=== PATIENT | female | born 1980 | race Caucasian/White ===

== ENCOUNTER 2016-08-31 22:03 | Inpatient (IN) | payer OTHER ==
[~2016-08-31] VITALS: Ht 160 cm; Wt 172.3 kg
[~2016-08-31 22:03] MED LIST: IBUPROFEN 800 MG TAB PO SCH; SPIRONOLACTONE 50 MG TAB PO SCH; tiZANidine 4 MG TAB PO SCH
[2016-09-01] MEDS ORDERED: MOM 30ML SUSPENSION UDC PO PRN (00:30)
[2016-09-01] MEDS ORDERED: MAALOX 30 ML SUSP *UDC PO PRN (00:30)
[2016-09-01] MEDS ORDERED: QUEtiapine FUMARATE 50 MG TAB PO PRN (00:30)
[2016-09-01 00:58] LABS: MEAN CORPUSCULAR HEMOGLOBIN 25.5 pg (27.0-33.0); MEAN CORPUSCULAR HGB CONC 32.7 g/dl (32.0-36.5); MEAN CORPUSCULAR VOLUME 77.8 fl (80.0-96.0); PLATELET COUNT, AUTOMATED 501 k/mm3 (150-450); RED CELL DISTRIBUTION WIDTH 13.3 % (11.5-14.5); WHITE BLOOD COUNT 25.6 K/mm3 (4.0-10.0)
[2016-09-01 01:19] LABS: ALBUMIN 3.9 GM/DL (3.2-5.2); ALBUMIN/GLOBULIN RATIO 0.98 (1.00-1.93); ALKALINE PHOSPHATASE 104 U/L (45-117); ALT/SGPT 21 U/L (12-78); ANION GAP 12 MEQ/L (8-16); AST/SGOT 7 U/L (15-37); BILIRUBIN,DIRECT < 0.1 MG/DL (0.0-0.2); BILIRUBIN,TOTAL 0.3 MG/DL (0.2-1.0); BLOOD UREA NITROGEN 16 MG/DL (7-18); CALCIUM LEVEL 9.1 MG/DL (8.5-10.1); CARBON DIOXIDE LEVEL 27 MEQ/L (21-32); CHLORIDE LEVEL 100 MEQ/L (98-107); CREATININE FOR GFR 1.04 MG/DL (0.55-1.02); GLOMERULAR FILTRATION RATE > 60.0 (>60); GLUCOSE, FASTING 125 MG/DL (70-105); POTASSIUM SERUM 3.5 MEQ/L (3.5-5.1); SODIUM LEVEL 139 MEQ/L (136-145); TOTAL PROTEIN 7.9 GM/DL (6.4-8.2)
[2016-09-01 01:21] LABS: CONTROL LINE HCG INT CTR LINE PRESENT
[2016-09-01 02:10] LABS: AMPHETAMINES LEVEL URINE POSITIVE (NEGATIVE); BENZODIAZEPINES URINE POSITIVE (NEGATIVE); COCAINE METABOLITE URINE NEGATIVE (NEGATIVE); CONTROL LINE INT CTR LINE PRESENT; METHADONE URINE NEGATIVE (NEGATIVE); OPIATES URINE NEGATIVE (NEGATIVE); TRICYCLIC ANTIDEPRESS URINE NEGATIVE (NEGATIVE)
--- NOTE | 2016-09-01 04:16 | EDDOCDS ---
Physician Documentation [facility] Name: Lala Larson Age: 36 yrs Sex: Female : 1980 Arrival Date: 08/31/2016 Time: 22:03 Bed [facility] Private MD: NO PRIMARY PHYSICIAN, . Disposition: 09/01/16 04:06 Hospitalization ordered by Morris Franz for Inpatient Admission. Preliminary diagnosis is Suicidal ideations. - Bed requested for Admit. - Status is Inpatient Admission. rw1 - Condition is Stable. - Problem is an acute exacerbation. - Symptoms have improved. Historical: - Allergies: no known allergies; - Home Meds: 1. duloxetine 60 mg Oral cpDR 2 caps once daily (Last dose: 08/31/2016 10:00) 2. Folic Acid Oral 1 tab once daily 3. Vitamin B-1 oral oral daily 4. naproxen 500 mg Oral tab 1 tab daily 5. trazodone 100 mg Oral tab 1 tab nightly (Last dose: 08/30/2016) 6. ibuprofen 800 mg Oral tab 1 tab nightly (Last dose: 08/30/2016) 7. tizanidine 2 mg oral cap 2 caps nightly (Last dose: 08/30/2016) 8. prednisone Oral 5 day pack, last dose would have been tonight (Last dose: 08/30/2016) 9. spironolactone 100 mg Oral tab 1 tab nightly (Last dose: 08/30/2016) - PMHx: Bipolar disorder; Depression; Anxiety; - PSHx: ; - Social history: Smoking status: Patient states was never smoker of tobacco. No barriers to communication noted, The patient speaks fluent Kazakh. - Family history: Not pertinent. - : The pt / caregiver states he / she is not on anticoagulants. Home medication list is obtained from the patient. - Exposure Risk Screening:: None identified. 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 3 in. (160.02 cm) (R); Pain 10/09; 09/01 04:13 BP 118 / 69; Pulse 97; Resp 18; Temp 97.4(TE); Pulse Ox 98% on R/A; Pain 0/10; rw1 08/31 22:04 Body Mass Index 66.25 (169.64 kg, 160.02 cm) gr2 MDM: 08/31 23:35 Consult PFS/PSA/Storage Facility Housekeeper ordered. ke 23:35 Consult PFS/PSA/Storage Facility Housekeeper: Patient's case requires discussion with on-call ke Psychiatrist ordered. 23:35 PSA/PFS to call Nursing Greens Cutter, to enter patient data on [place] Safe Act if patient ke involuntarily admitted or transferred for SI or HI ordered. 23:35 Confirm accurate psychiatric medication list and times of last dosage ordered. ke 23:35 Detain Pt Until Medically/PFS Cleared ordered. ke 23:36 Acetaminophen Level Ordered. EDMS 23:36 Basic Metabolic Profile Ordered. EDMS 23:36 Complete Blood Count Ordered. EDMS 23:36 Drug Eval Toxicology ED Only Ordered. EDMS 23:36 Ethyl Alcohol (ethanol) Ordered. EDMS 23:36 HCG,Serum Qualitative Ordered. EDMS 23:36 Liver Profile Ordered. EDMS 23:36 Salicylate Level Ordered. EDMS 23:36 Thyroid Stimulating Hormone Ordered. EDMS 09/01 00:25 Admit to HU: ordered. EDMS 00:25 REGULAR DIET ordered. EDMS 01:13 Consult PFS/PSA/Storage Facility Housekeeper complete. jfb 01:13 Consult PFS/PSA/Storage Facility Housekeeper: Patient's case requires discussion with on-call [facility] Psychiatrist complete. 01:13 PSA/PFS to call Nursing Greens Cutter, to enter patient data [place] Safe [place] if patient jfb involuntarily admitted or transferred for SI or HI complete. 01:25 E Legal paperwork was scanned into [employer] and attached to record. jfb 01:33 [facility] [place] Payment Agreement was scanned into [employer] and attached to record. hs2 04:05 Financial registration complete. hs2 04:06 Acetaminophen Level Reviewed. mm11 04:06 Basic Metabolic Profile Reviewed. mm11 04:06 Complete Blood Count Reviewed. mm11 04:06 Drug Eval Toxicology ED Only Reviewed. mm11 04:06 Liver Profile Reviewed. mm11 04:06 Salicylate Level Reviewed. mm11 04:06 Ethyl Alcohol (ethanol) Reviewed. mm11 04:06 HCG,Serum Qualitative Reviewed. mm11 04:06 Thyroid Stimulating Hormone Reviewed. mm11 04:08 Urine Culture Ordered. EDMS 04:09 Differential Ordered. EDMS 04:09 UA Ordered. EDMS Signatures: Dispatcher [employer] EDMS Marbin Herzog, HOMEOPATHIC DOCTOR HOMEOPATHIC DOCTOR Ahsan Velazquez,REGIONAL SALES EXECUTIVE REGIONAL SALES EXECUTIVE rw1 Micheal Ramsey, DO DO mm11 Lyssa Serna, PSA PSA latoshab Marissa Moran RN RN ms18 Jossy Trevino, Reg Reg hs2 The chart was reviewed and I authenticate all verbal orders and agree with the evaluation and treatment provided.Attachments: 01:33 [facility] Payment Agreement hs2 MTDD
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
[2016-09-01 04:23] VITALS: BP 138/89
[2016-09-01] MEDS ORDERED: FOLI1TAB2 PO (04:53)
[2016-09-01] MEDS ORDERED: PRED20TA PO (04:53)
[2016-09-01] MEDS ORDERED: OMEP20CA3 PO (04:53)
[2016-09-01] MEDS ORDERED: NAPR1TAB86 PO (04:53)
[2016-09-01] MEDS ORDERED: SPIR100T PO (04:53)
[2016-09-01] MEDS ORDERED: IBUP800T23 PO (04:53)
[2016-09-01] MEDS ORDERED: TIZA4CAP3 PO (04:53)
[2016-09-01] MEDS ORDERED: VALI5TAB PO (04:53)
[2016-09-01] MEDS ORDERED: VITA100T2 PO (04:53)
[2016-09-01] MEDS ORDERED: TRAZ100T4 PO (04:53)
[2016-09-01] MEDS ORDERED: DULO1CAP3 PO (04:53)
[2016-09-01 05:03] LABS: DIFF SLIDE NUMBER 102
[2016-09-01 05:19] LABS: SMUDGE CELLS 1+
[2016-09-01] MEDS ORDERED: DULoxetine 30 MG CAP (CYMBALTA) PO SCH (09:00)
[2016-09-01] MEDS: FOLIC ACID 1 MG TAB PO SCH (09:23)
[2016-09-01] MEDS: THIAMINE 100 MG TAB PO SCH (09:23)
[2016-09-01] MEDS: OMEPRAZOLE 20 MG CAP PO SCH (09:23)
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
[2016-09-01 12:54] LABS: MEAN CORPUSCULAR HEMOGLOBIN 25.6 pg (27.0-33.0); MEAN CORPUSCULAR HGB CONC 32.8 g/dl (32.0-36.5); MEAN CORPUSCULAR VOLUME 78.1 fl (80.0-96.0); RED CELL DISTRIBUTION WIDTH 13.3 % (11.5-14.5); WHITE BLOOD COUNT 15.7 K/mm3 (4.0-10.0)
--- NOTE | 2016-09-01 15:32 | HPEPDOC ---
[facility] History & Physical History and Physical DATE OF ADMISSION: Sep 01, 2016 at 04:23 CHIEF COMPLAINT: "My head is very messed up right now, I have a 4-year-old, my boyfriend is a drug addict". HISTORY OF THE PRESENT ILLNESS: Patient reports she has had thoughts of hurting herself that started 2-3 months ago. Patient states these have been worse in the last 2-3 weeks due to her boyfriend's increased drug use. PAST PSYCHIATRIC HISTORY: Patient patient states her first psychiatric episode was at age 17 when she had a suicide attempt. Patient reports she cut her bilateral wrists superficially. Patient now feels that was a cry for help, however at the time patient feels she really wanted to . Patient was not hospitalized. Patient was put into outpatient therapy and started on medications. Patient states her first Hospital psych admission was in [place]. Patient states she was here for 4-5 days due to depression and suicidal thoughts. At this hospitalization, the physicians thought she may have a diagnosis of bipolar disease. This admission is the patient's third for psychiatric reasons. ALLERGIES: Please see below. PAST MEDICAL HISTORY: 1. Acne 2. Obesity. HOME MEDICATIONS: Please see below. Cymbalta 120 mg by mouth daily, trazodone 200 mg by mouth daily at bedtime. FAMILY PSYCHIATRIC HISTORY: Patient denies. SOCIAL HISTORY: Patient is a 36-year-old female. Patient reports she has been in a relationship for 5 years with her current boyfriend patient and has a 4-year-old daughter. Patient's current partner is not the father of her child. Of note: Patient has joint custody of her child with her mother. SUBSTANCE ABUSE HISTORY: Patient states her drugs of choice were pain pills and cocaine. Patient states her drug use was for an approximate six-month period of time. Patient states then she came to her senses and realized this was not what she was and stopped. Patient reports she has not had an alcoholic beverage for 6 years by her own choice. Patient denies any problems with alcohol. LEGAL HISTORY: Patient denies. VITAL SIGNS: Temperature 97.1, pulse 98, respiratory rate 16, blood pressure 136 /89, pulse oximetry 98 % on room air. LABORATORY DATA: Please see below. MENTAL STATUS EXAMINATION: Patient is a 36-year-old female who appears her stated age. Patient is pleasant and cooperative, easily engaged. Patient is morbidly obese wearing a hospital gown. Patient noted to have average grooming. Speech: Is circumstantial of, normal rate, volume and articulation. Patient is coherent and spontaneous. Language skills are intact. Thought processes: Unclear , partially goal-directed. Thought content: Rational, logical circumstantial. Abstract reasoning and computation: Adequate. Description of associations: Intact. Description of abnormal or psychotic thoughts: Patient denies hallucinations, delusions, obsessions and compulsions, paranoia, preoccupations , homicidal or suicidal ideation. Patient reports she always thinks of cutting. Patient states she last cut in May 2016. Judgment and insight: Poor. Orientation to time, place, person and surroundings. Recent and remote memory: No issues. Attention span and concentration: Fair. Language: Normal. Fund of knowledge: Adequate. Mood: "Very, very tired and sore due to my back problem ". Affect: Appropriate, flat, constricted, depressed, anxious. DIAGNOSES: 1. Major depressive disorder, recurrent 2. Sleep disturbance 3. Rule out bipolar disorder. ASSESSMENT: Patient is a 36-year-old more build Tone obese female with a 4-year-old daughter. Patient is having relationship issues as she directed describes her boyfriend as an addict. Patient reports she cannot live this way any longer. Patient states she is moved into her mother's and stepfather's residence with her 4-year-old daughter. Patient states that her mother is very supportive. As stated before mother also has joint custody of her 4-year-old daughter. Patient appears overwhelmed, hopeless, undecided as to what she wants next in her life. Patient reports it's time for her to take care of herself and not everyone else. Except her 4-year-old daughter. Patient has been admitted to get that process started. Patient reports she is willing to do what she needs to do to get right. PROBLEM LIST: 1. Risk for suicide. 2. Depression/anxiety. 3. Ineffective coping. INITIAL TREATMENT PLAN: Patient to be continually assessed and monitored while on the unit. Patient to have med dosages adjusted as needed. Maintain safety precautions. To attend groups and activities as well as participating in unit programming to develop effective coping strategies. Patient to be engaged in discharge planning process to ensure safe and effective discharge plan patient to follow-up with primary care physician upon discharge. Patient to consider substance abuse and codependency support group upon discharge. Patient to resume counseling and/or therapy upon discharge. Patient to schedule and attend medication management appointments per her outpatient provider. ESTIMATED LENGTH OF STAY: 7-10 days. TIME SPENT EVALUATING AND COORDINATING INITIAL CARE: 50 minutes. Laboratory Data 24H Labs Laboratory Tests 2 09/01/16 00:23: Urine Amorphous Sediment , Urine Appearance HAZY, Urine Color YELLOW, Urine pH 5.0, Urine Specific [place] 1.021, Urine Protein NEGATIVE, Urine Glucose (UA) NEGATIVE, Urine Ketones NEGATIVE, Urine Urobilinogen 0.2, Urine Bilirubin NEGATIVE, Urine Leukocyte Esterase TRACEH, Urine Bacteria (Auto) NEGATIVE, Urine Blood 3+H, Urine Calcium Carbonate Cryst(Auto) , Urine Calcium Oxalate Cryst (Auto) , Urine Calcium Phosphate Krissy (Auto) , Urine Cellular Casts , Urine Cystine Crystals , Urine Granular Casts (Auto) , Urine Hyaline Casts (Auto ) 0, Urine Leucine Crystals , Urine Mucus (Auto) LARGE, Urine Nitrite NEGATIVE, Urine Oval Fat Bodies (Auto) , Urine RBC (Auto) 2, Urine Renal Epithelial Cells , Urine Sperm (Auto) , Urine Squamous Epithelial Cells 5, Urine Transitional Epithelial Cells , Urine Trichomonas (Auto) , Urine Triple Phosphate Cryst (Auto ) , Urine Tyrosine Crystals , Urine Uric Acid Crystals (Auto) , Urine WBC (Auto ) 6H, Urine Waxy Casts (Auto) , Urine Yeast-Like Cells (Auto) 09/01/16 00:24: Urine Amphetamine Level POSITIVEH, Urine Benzodiazepines Screen POSITIVEH, Urine Cannabinoids NEGATIVE, Urine Cocaine Metabolite NEGATIVE, Urine Opiates Screen NEGATIVE, Urine Barbiturates, Qualitative NEGATIVE, Urine Methadone Screen NEGATIVE, Urine Tricyclic Antidepressants NEGATIVE 09/01/16 00:30: Acetaminophen Level < 2.0L, Aspartate Amino Transf (AST/SGOT) 7L, Alanine Aminotransferase (ALT/SGPT) 21, Alkaline Phosphatase 104, Total Bilirubin 0.3, Direct Bilirubin < 0.1, Albumin 3.9, Albumin/Globulin Ratio 0.98L, Anion Gap 12 , Neutrophils 65, Lymphocytes (Manual) 20, Monocytes (Manual) 9H, Atypical Lymphocytes 6H, Red Blood Cell Morphology NORMAL, Smudge Cells 1+, Platelet Estimate NORMAL, Calcium Level 9.1, Ethyl Alcohol Level < 0.003, Glomerular Filtration Rate > 60.0, Human Chorionic Gonadotropin, Qual NEGATIVE, Salicylates Level < 1.7L, Thyroid Stimulating Hormone (TSH) 2.820, Total Protein 7.9 CBC/BMP Laboratory Tests 09/01/16 00:30 Red Blood Count 5.95 H, Mean Corpuscular Volume 77.8 L, Mean Corpuscular Hemoglobin 25.5 L, Mean Corpuscular Hemoglobin Concent 32.7, Red Cell Distribution Width 13.3 09/01/16 12:08 Red Blood Count 5.72 H, Mean Corpuscular Volume 78.1 L, Mean Corpuscular Hemoglobin 25.6 L, Mean Corpuscular Hemoglobin Concent 32.8, Red Cell Distribution Width 13.3 Medications Scheduled Duloxetine Hcl (Duloxetine HCl) 60 Mg Cap 120 MG PO DAILY (Reported) Folic Acid (Folic Acid) 1 Mg Tab 1 MG PO DAILY (Reported) Ibuprofen (Ibuprofen) 800 Mg Tab 800 MG PO QHS (Reported) Naproxen Sodium (Naproxen Sodium) 500 Mg Tab 500 MG PO DAILY (Reported) Omeprazole (Omeprazole) 20 Mg Cap 20 MG PO DAILY (Reported) Prednisone (Prednisone) 20 Mg Tab 60 MG PO QHS (Reported) 08/31/16 AT QHS WOULD HAVE BEEN LAST DOSE Spironolactone (Spironolactone) 100 Mg Tab 100 MG PO QHS (Reported) Thiamine HCl (Vitamin B-1) 100 Mg Tab 100 MG PO DAILY (Reported) Trazodone HCl (Trazodone HCl) 100 Mg Tab 200 MG PO QHS (Reported) Scheduled PRN Diazepam (Valium) 5 Mg Tab 5 MG PO Q8H PRN PRN MUSCLE SPASMS (Reported) Tizanidine Hydrochloride (Tizanidine HCl) 4 Mg Cap 4 MG PO TID PRN PRN MUSCLE SPASMS (Reported) Allergies Coded Allergies: TAPE (Unverified Allergy, Intermediate, BLISTERS, 09/01/16) Prochlorperazine (Unverified Adverse Reaction, Intermediate, NAUSEA, ) JESSE BLEDSOE NP Sep 01, 2016 15:31
[2016-09-01 18:00] VITALS: BP 121/67
[2016-09-01] MEDS: SPIRONOLACTONE 50 MG TAB PO SCH (20:53)
[2016-09-01] MEDS: traZODone 100 MG TAB PO PRN (20:53)
[2016-09-01] MEDS ORDERED: tiZANidine 4 MG TAB PO SCH (21:00)
[2016-09-01] MEDS ORDERED: IBUPROFEN 800 MG TAB PO SCH (21:00)
[2016-09-02 06:32] VITALS: BP 118/60
[2016-09-02] MEDS: THIAMINE 100 MG TAB PO SCH (09:45)
[2016-09-02] MEDS: OMEPRAZOLE 20 MG CAP PO SCH (09:45)
[2016-09-02] MEDS: FLUoxetine 10 MG CAP PO SCH (09:45)
[2016-09-02] MEDS: FOLIC ACID 1 MG TAB PO SCH (09:45)
[2016-09-02] MEDS: hydrOXYzine 50 MG TAB PO PRN (11:44)
[2016-09-02] MEDS: chlordiazePOXIDE 25 MG CAP PO SCH ×2 (16:00→21:00)
[2016-09-02] MEDS: tiZANidine 4 MG TAB PO PRN ×2 (16:13→21:36)
[2016-09-02] MEDS: NAPROXEN 375 MG TAB PO PRN (16:14)
[2016-09-02 18:00] VITALS: BP 142/93
--- NOTE | 2016-09-02 18:35 | IPNPDOC ---
[facility] Progress Note Progress Note DATE OF SERVICE: 09/02/16 HISTORY: CHIEF COMPLAINT: "My head is very messed up right now, I have a 4-year- old, my boyfriend is a drug addict". HISTORY OF THE PRESENT ILLNESS: Patient reports she has had thoughts of hurting herself that started 2-3 months ago. Patient states these have been worse in the last 2-3 weeks due to her boyfriend's increased drug use. PAST PSYCHIATRIC HISTORY: Patient patient states her first psychiatric episode was at age 17 when she had a suicide attempt. Patient reports she cut her bilateral wrists superficially. Patient now feels that was a cry for help, however at the time patient feels she really wanted to . Patient was not hospitalized. Patient was put into outpatient therapy and started on medications. Patient states her first Hospital psych admission was in [place]. Patient states she was here for 4-5 days due to depression and suicidal thoughts. At this hospitalization, the physicians thought she may have a diagnosis of bipolar disease. This admission is the patient's third for psychiatric reasons. ALLERGIES: Please see below. PAST MEDICAL HISTORY: 1. Acne 2. Obesity. HOME MEDICATIONS: Please see below. Cymbalta 120 mg by mouth daily, trazodone 200 mg by mouth daily at bedtime. FAMILY PSYCHIATRIC HISTORY: Patient denies. SOCIAL HISTORY: Patient is a 36-year-old female. Patient reports she has been in a relationship for 5 years with her current boyfriend patient and has a 4-year-old daughter. Patient's current partner is not the father of her child. Of note: Patient has joint custody of her child with her mother. SUBSTANCE ABUSE HISTORY: Patient states her drugs of choice were pain pills and cocaine. Patient states her drug use was for an approximate six-month period of time. Patient states then she came to her senses and realized this was not what she was and stopped. Patient reports she has not had an alcoholic beverage for 6 years by her own choice. Patient denies any problems with alcohol. LEGAL HISTORY: Patient denies. NEW TEST RESULTS: NA. UDS ON ADMIT: POS for Amphetamine, Benzo VITAL SIGNS: 96.6 77 18 118/60 CURRENT MEDICATIONS: See below. Prozac 10 mg by mouth every morning, Cymbalta 60 mg by mouth daily at bedtime, hydroxyzine hydrochloride 50 mg by mouth every 6 hours when necessary a/a, trazodone 100 mg by mouth daily at bedtime when necessary for insomnia. MENTAL STATUS EXAMINATION: Patient is a 36-year-old female who appears her stated age. Patient is pleasant and cooperative, easily engaged. Patient is morbidly obese wearing her own clothes. Pt. is talking with RN Lauryn instead of being in group. Pt. states she did not go to group last evening either. Patient noted to have average grooming. Speech: Is circumstantial, of normal rate, volume and articulation. Patient is coherent and spontaneous. Language skills are intact. Thought processes: Clearing, partially goal-directed. Thought content: Rational, logical circumstantial. Abstract reasoning and computation: Adequate. Description of associations: Intact. Description of abnormal or psychotic thoughts: Patient denies hallucinations, delusions, obsessions and compulsions, paranoia, preoccupations, homicidal or suicidal ideation. Patient reports she has no thoughts of cutting. Patient states she last cut in May 2016. Judgment and insight: Poor. Orientation to: Time, place, person and surroundings. Recent and remote memory: No issues. Attention span and concentration: Fair. Language: Normal. Fund of knowledge: Adequate. Mood: "Tired, I feel like I didn't sleep " . Affect: Appropriate, flat, constricted, worried, labile, possibly physically ill. Pt. may be possibly going through withdrawal from benzos. DIAGNOSES: 1. Major depressive disorder, recurrent 2. Sleep disturbance 3. Rule out bipolar disorder. ASSESSMENT: Patient is a 36-year-old morbidly obese, female with a 4- year-old daughter. Patient is having relationship issues as she describes her boyfriend as an addict. Patient reports she cannot live this way any longer. Patient states she is moved into her mother's and stepfather's residence with her 4-year-old daughter. Patient states that her mother is very supportive. As stated before mother also has joint custody of her 4-year-old daughter. Patient appears labile, fluctuating on whether or not she wishes to continue with the relationship. Pt. reports he is continually calling her on the unit. Pt. reports "My boyfriend keeps calling, he wants to be together, he doesn't want me to leave". Pt. states "I am his biggest enabler". When asked how he got the phone number pt. states "I don't know", then "He looked it up on google". Pt. encouraged to not answer the phone calls if they are this upsetting to her. 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 RN encouraged [place] type group to help with co-dependent issues. Pt. complains of stomach upset with diarrhea during the night. Pt. states she did not report this to staff or ask for meds to help. Pt. reports she did not sleep more than 2-3 hours because of this illness. Pt. encouraged to let staff know of issues if it happens again. Pt. met with case management staff for services when discharged. MANAGEMENT PLAN: Patient to be continually assessed and monitored while on the unit. Patient to have med dosages adjusted as needed. Maintain safety precautions. Pt. is not to isolate in her room. To attend groups and activities as well as participating in unit programming to develop effective coping strategies. Patient to be engaged in discharge planning process to ensure safe and effective discharge plan patient to follow-up with primary care physician upon discharge. Patient to consider substance abuse and codependency support group upon discharge. Patient to resume counseling and/or therapy upon discharge. Patient to schedule and attend medication management appointments per her outpatient provider. TIME SPENT: 25 minutes. Vital Signs Vital Signs Date Time Temp Pulse Resp B/P Pulse Ox O2 Delivery O2 Flow Rate FiO2 09/02/16 06:32 96.6 77 18 118/60 09/01/16 04:23 98 Room Air Current Medications Current Medications Medications (Trade) Dose Ordered Sig/Elham Route PRN Reason Start Time Stop Time Status Last Admin Dose Admin Acetaminophen (Tylenol Tab) 650 mg Q6HP PRN PO HEADACHE or DISCOMFORT 09/01/16 00:30 10/01/16 00:29 Al Hydrox/Mg Hydrox/Simethicone (Mylanta) 30 ml Q4HP PRN PO HEARTBURN/INDIGESTION 09/01/16 00:30 10/01/16 00:29 Duloxetine HCl (Cymbalta) 60 mg QHS PO 09/02/16 21:00 10/02/16 20:59 Duloxetine HCl (Cymbalta) 120 mg DAILY PO 09/01/16 09:00 09/01/16 15:16 DC 09/01/16 09:23 Fluoxetine HCl (PROzac) 10 mg QAM PO 09/02/16 09:00 10/02/16 08:59 09/02/16 09:45 Folic Acid (Folic Acid) 1 mg DAILY PO 09/01/16 09:00 10/01/16 08:59 09/02/16 09:45 Home Med (Med Rec Complete!) ASDIRECTED XX 09/01/16 05:00 09/01/16 06:13 DC Hydroxyzine HCl (Atarax) 50 mg Q6HP PRN PO ANXIETY/AGITATION 09/01/16 15:15 10/01/16 15:14 09/02/16 11:44 Ibuprofen (Motrin, Advil) 800 mg QHS PO 08/31/16 21:00 09/01/16 06:19 DC Ibuprofen (Motrin, Advil) 800 mg QHS PO 09/01/16 21:00 09/02/16 11:58 DC 09/01/16 20:53 Magnesium Hydroxide (Milk Of Magnesia) 30 ml DAILYPRN PRN PO CONSTIPATION 09/01/16 00:30 10/01/16 00:29 Naproxen (Naprosyn) 375 mg Q12HP PRN PO PAIN 09/02/16 12:00 10/02/16 11:59 09/02/16 16:14 Omeprazole (PriLOSEC) 20 mg DAILY PO 09/01/16 09:00 10/01/16 08:59 09/02/16 09:45 Quetiapine Fumarate (SEROquel) 50 mg QHSP PRN PO INSOMNIA 09/01/16 00:30 09/01/16 15:16 DC Spironolactone (Aldactone) 100 mg QHS PO 08/31/16 21:00 09/01/16 06:19 DC Spironolactone (Aldactone) 100 mg QHS PO 09/01/16 21:00 10/01/16 20:59 09/01/16 20:53 Thiamine HCl (Thiamine HCl) 100 mg DAILY PO 09/01/16 09:00 10/01/16 08:59 09/02/16 09:45 Tizanidine HCl (Zanaflex) 4 mg QHS PO 08/31/16 21:00 09/01/16 06:20 DC Tizanidine HCl (Zanaflex) 4 mg QHS PO 09/01/16 21:00 09/02/16 11:58 DC 09/01/16 20:53 Tizanidine HCl (Zanaflex) 4 mg TID PRN PO MUSCLE SPASMS 09/02/16 12:00 10/02/16 11:59 09/02/16 16:13 Trazodone HCl (Desyrel) 100 mg QHSP PRN PO INSOMNIA 09/01/16 15:30 10/01/16 15:29 09/01/16 20:53 Allergies Coded Allergies: TAPE (Unverified Allergy, Intermediate, BLISTERS, 09/01/16) Prochlorperazine (Unverified Adverse Reaction, Intermediate, NAUSEA, ) JESSE BLEDSOE NP Sep 02, 2016 18:35
[2016-09-02] MEDS ORDERED: DULoxetine 30 MG CAP (CYMBALTA) PO SCH (21:00)
[2016-09-02] MEDS: SPIRONOLACTONE 50 MG TAB PO SCH (21:34)
[2016-09-02] MEDS: traZODone 100 MG TAB PO PRN (21:36)
--- NOTE | 2016-09-02 23:06 | ECGEPIP ---
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
--- NOTE | 2016-09-03 05:17 | EDDOCDS ---
Physician Documentation [facility] Name: Lala Larson Age: 36 yrs Sex: Female : 1980 Arrival Date: 08/31/2016 Time: 22:03 Bed [facility] Private MD: NO PRIMARY PHYSICIAN, . Disposition: 09/01/16 04:06 Hospitalization ordered by Morris Franz for Inpatient Admission. Preliminary diagnosis is Suicidal ideations. - Bed requested for Admit. - Status is Inpatient Admission. rw1 - Condition is Stable. - Problem is an acute exacerbation. - Symptoms have improved. Historical: - Allergies: no known allergies; - Home Meds: 1. duloxetine 60 mg Oral cpDR 2 caps once daily (Last dose: 08/31/2016 10:00) 2. Folic Acid Oral 1 tab once daily 3. Vitamin B-1 oral oral daily 4. naproxen 500 mg Oral tab 1 tab daily 5. trazodone 100 mg Oral tab 1 tab nightly (Last dose: 08/30/2016) 6. ibuprofen 800 mg Oral tab 1 tab nightly (Last dose: 08/30/2016) 7. tizanidine 2 mg oral cap 2 caps nightly (Last dose: 08/30/2016) 8. prednisone Oral 5 day pack, last dose would have been tonight (Last dose: 08/30/2016) 9. spironolactone 100 mg Oral tab 1 tab nightly (Last dose: 08/30/2016) - PMHx: Bipolar disorder; Depression; Anxiety; - PSHx: ; - Social history: Smoking status: Patient states was never smoker of tobacco. No barriers to communication noted, The patient speaks fluent Mongolian. - Family history: Not pertinent. - : The pt / caregiver states he / she is not on anticoagulants. Home medication list is obtained from the patient. - Exposure Risk Screening:: None identified. 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 3 in. (160.02 cm) (R); Pain 10/09; 09/01 04:13 BP 118 / 69; Pulse 97; Resp 18; Temp 97.4(TE); Pulse Ox 98% on R/A; Pain 0/10; rw1 08/31 22:04 Body Mass Index 66.25 (169.64 kg, 160.02 cm) gr2 MDM: 08/31 23:35 Consult PFS/PSA/Cooper Apprentice ordered. ke 23:35 Consult PFS/PSA/Cooper Apprentice: Patient's case requires discussion with on-call ke Psychiatrist ordered. 23:35 PSA/PFS to call Nursing Getter Welder, to enter patient data on [place] if patient ke involuntarily admitted or transferred for SI or HI ordered. 23:35 Confirm accurate psychiatric medication list and times of last dosage ordered. ke 23:35 Detain Pt Until Medically/PFS Cleared ordered. ke 23:36 Acetaminophen Level Ordered. EDMS 23:36 Basic Metabolic Profile Ordered. EDMS 23:36 Complete Blood Count Ordered. EDMS 23:36 Drug Eval Toxicology ED Only Ordered. EDMS 23:36 Ethyl Alcohol (ethanol) Ordered. EDMS 23:36 HCG,Serum Qualitative Ordered. EDMS 23:36 Liver Profile Ordered. EDMS 23:36 Salicylate Level Ordered. EDMS 23:36 Thyroid Stimulating Hormone Ordered. EDMS 09/01 00:25 Admit to HU: ordered. EDMS 00:25 REGULAR DIET ordered. EDMS 01:13 Consult PFS/PSA/Cooper Apprentice complete. jfb 01:13 Consult PFS/PSA/Cooper Apprentice: Patient's case requires discussion with on-call [facility] Psychiatrist complete. 01:13 PSA/PFS to call Nursing Getter Welder, to [place] if patient jfb involuntarily admitted or transferred for SI or HI complete. 01:25 E Legal paperwork was scanned into [employer] and attached to record. jfb 01:33 [facility] [place] into [employer] and attached to record. hs2 04:05 Financial registration complete. hs2 04:06 Acetaminophen Level Reviewed. mm11 04:06 Basic Metabolic Profile Reviewed. mm11 04:06 Complete Blood Count Reviewed. mm11 04:06 Drug Eval Toxicology ED Only Reviewed. mm11 04:06 Liver Profile Reviewed. mm11 04:06 Salicylate Level Reviewed. mm11 04:06 Ethyl Alcohol (ethanol) Reviewed. mm11 04:06 HCG,Serum Qualitative Reviewed. mm11 04:06 Thyroid Stimulating Hormone Reviewed. mm11 04:08 Urine Culture Ordered. EDMS 04:09 Differential Ordered. EDMS 04:09 UA Ordered. EDMS 09:38 T-Sheet-- Draft Copy was scanned into [employer] and attached to record. gb Signatures: Dispatcher [employer] EDMS Shanell Carson, Reg Reg gb Marbin Herzog, YEAST CULTURE OPERATOR YEAST CULTURE OPERATOR Ahsan Velazquez,TEST LEAD APPLICATION TESTING TEST LEAD APPLICATION TESTING rw1 Micheal Ramsey, DO mm11 Lyssa Serna, PSA PSA jfb Marissa Moran,RN RN [id number] Jossy Trevino, Reg Reg hs2 The chart was reviewed and I authenticate all verbal orders and agree with the evaluation and treatment provided.Attachments: 01:33 [facility] [place] hs2 09:38 T-Sheet-- Draft Copy gb Chart Complete MTDD
--- NOTE | 2016-09-03 05:17 | EDDOCDS ---
Physician Documentation [facility] Name: Lala Larson Age: 36 yrs Sex: Female : 1980 Arrival Date: 08/31/2016 Time: 22:03 Bed [facility] Private MD: NO PRIMARY PHYSICIAN, . Disposition: 09/01/16 04:06 Hospitalization ordered by Morris Franz for Inpatient Admission. Preliminary diagnosis is Suicidal ideations. - Bed requested for Admit. - Status is Inpatient Admission. rw1 - Condition is Stable. - Problem is an acute exacerbation. - Symptoms have improved. Historical: - Allergies: no known allergies; - Home Meds: 1. duloxetine 60 mg Oral cpDR 2 caps once daily (Last dose: 08/31/2016 10:00) 2. Folic Acid Oral 1 tab once daily 3. Vitamin B-1 oral oral daily 4. naproxen 500 mg Oral tab 1 tab daily 5. trazodone 100 mg Oral tab 1 tab nightly (Last dose: 08/30/2016) 6. ibuprofen 800 mg Oral tab 1 tab nightly (Last dose: 08/30/2016) 7. tizanidine 2 mg oral cap 2 caps nightly (Last dose: 08/30/2016) 8. prednisone Oral 5 day pack, last dose would have been tonight (Last dose: 08/30/2016) 9. spironolactone 100 mg Oral tab 1 tab nightly (Last dose: 08/30/2016) - PMHx: Bipolar disorder; Depression; Anxiety; - PSHx: ; - Social history: Smoking status: Patient states was never smoker of tobacco. No barriers to communication noted, The patient speaks fluent Sinhala. - Family history: Not pertinent. - : The pt / caregiver states he / she is not on anticoagulants. Home medication list is obtained from the patient. - Exposure Risk Screening:: None identified. 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 3 in. (160.02 cm) (R); Pain 10/09; 09/01 04:13 BP 118 / 69; Pulse 97; Resp 18; Temp 97.4(TE); Pulse Ox 98% on R/A; Pain 0/10; rw1 08/31 22:04 Body Mass Index 66.25 (169.64 kg, 160.02 cm) gr2 MDM: 08/31 23:35 Consult PFS/PSA/Mechanic Recovery ordered. ke 23:35 Consult PFS/PSA/Mechanic Recovery: Patient's case requires discussion with on-call ke Psychiatrist ordered. 23:35 PSA/PFS to call Nursing Hand Patcher, to [place] if patient ke involuntarily admitted or transferred for SI or HI ordered. 23:35 Confirm accurate psychiatric medication list and times of last dosage ordered. ke 23:35 Detain Pt Until Medically/PFS Cleared ordered. ke 23:36 Acetaminophen Level Ordered. EDMS 23:36 Basic Metabolic Profile Ordered. EDMS 23:36 Complete Blood Count Ordered. EDMS 23:36 Drug Eval Toxicology ED Only Ordered. EDMS 23:36 Ethyl Alcohol (ethanol) Ordered. EDMS 23:36 HCG,Serum Qualitative Ordered. EDMS 23:36 Liver Profile Ordered. EDMS 23:36 Salicylate Level Ordered. EDMS 23:36 Thyroid Stimulating Hormone Ordered. EDMS 09/01 00:25 Admit to HU: ordered. EDMS 00:25 REGULAR DIET ordered. EDMS 01:13 Consult PFS/PSA/Mechanic Recovery complete. jfb 01:13 Consult PFS/PSA/Mechanic Recovery: Patient's case requires discussion with on-call [facility] Psychiatrist complete. 01:13 PSA/PFS to call Nursing Hand Patcher, to [place] if patient jfb involuntarily admitted or transferred for SI or HI complete. 01:25 E Legal paperwork was scanned into [employer] and attached to record. jfb 01:33 [facility] [place] was [place] into [employer] and attached to record. hs2 04:05 Financial registration complete. hs2 04:06 Acetaminophen Level Reviewed. mm11 04:06 Basic Metabolic Profile Reviewed. mm11 04:06 Complete Blood Count Reviewed. mm11 04:06 Drug Eval Toxicology ED Only Reviewed. mm11 04:06 Liver Profile Reviewed. mm11 04:06 Salicylate Level Reviewed. mm11 04:06 Ethyl Alcohol (ethanol) Reviewed. mm11 04:06 HCG,Serum Qualitative Reviewed. mm11 04:06 Thyroid Stimulating Hormone Reviewed. mm11 04:08 Urine Culture Ordered. EDMS 04:09 Differential Ordered. EDMS 04:09 UA Ordered. EDMS 09:38 T-Sheet-- Draft Copy was scanned into [employer] and attached to record. gb Signatures: Dispatcher [employer] EDMS Shanell Carson, Reg Reg gb Marbin Herzog, DIRECTOR BLOOD BANK DIRECTOR BLOOD BANK Ahsan Velazquez,CONTINUOUS CONVEYOR SCREEN DRIER CONTINUOUS CONVEYOR SCREEN DRIER rw1 Micheal Ramsey, DO mm11 Lyssa Serna, PSA PSA jfb Marissa Moran,RN RN [id number] Jossy Trevino, Reg Reg hs2 The chart was reviewed and I authenticate all verbal orders and agree with the evaluation and treatment provided.Attachments: 01:33 [facility] [place] hs2 09:38 T-Sheet-- Draft Copy gb Chart Complete MTDD
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
[2016-09-03 06:45] VITALS: BP 102/58
[2016-09-03 06:55] LABS: MEAN CORPUSCULAR HEMOGLOBIN 25.3 pg (27.0-33.0); MEAN CORPUSCULAR HGB CONC 32.1 g/dl (32.0-36.5); MEAN CORPUSCULAR VOLUME 78.7 fl (80.0-96.0); RED CELL DISTRIBUTION WIDTH 13.7 % (11.5-14.5); WHITE BLOOD COUNT 12.7 K/mm3 (4.0-10.0)
[2016-09-03] MEDS: OMEPRAZOLE 20 MG CAP PO SCH (09:49)
[2016-09-03] MEDS: FOLIC ACID 1 MG TAB PO SCH (09:49)
[2016-09-03] MEDS: FLUoxetine 10 MG CAP PO SCH (09:49)
[2016-09-03] MEDS: chlordiazePOXIDE 25 MG CAP PO SCH (09:49)
[2016-09-03] MEDS: THIAMINE 100 MG TAB PO SCH (09:49)
[2016-09-03] MEDS: NAPROXEN 375 MG TAB PO PRN ×2 (09:50→21:23)
[2016-09-03] MEDS: tiZANidine 4 MG TAB PO PRN ×2 (13:21→21:23)
[2016-09-03] MEDS: ACETAMINOPHEN TAB 650MG DOSE (2X325MG) PO PRN (13:21)
--- NOTE | 2016-09-03 17:53 | IPNPDOC ---
[facility] Progress Note Progress Note DATE OF SERVICE: 09/03/16 HISTORY: "My head is very messed up right now, I have a 4-year-old, my boyfriend is a drug addict". Patient reports she has had thoughts of hurting herself that started 2-3 months ago. Patient states these have been worse in the last 2-3 weeks due to her boyfriend's increased drug use. PAST PSYCHIATRIC HISTORY: Patient patient states her first psychiatric episode was at age 17 when she had a suicide attempt. Patient reports she cut her bilateral wrists superficially. Patient now feels that was a cry for help, however at the time patient feels she really wanted to . Patient was not hospitalized. Patient was put into outpatient therapy and started on medications. Patient states her first Hospital psych admission was in [place]. Patient states she was here for 4-5 days due to depression and suicidal thoughts. At this hospitalization, the physicians thought she may have a diagnosis of bipolar disease. This admission is the patient's third for psychiatric reasons. ALLERGIES: Please see below. PAST MEDICAL HISTORY: 1. Acne 2. Obesity. HOME MEDICATIONS: Please see below. Cymbalta 120 mg by mouth daily, trazodone 200 mg by mouth daily at bedtime. FAMILY PSYCHIATRIC HISTORY: Patient denies. SOCIAL HISTORY: Patient is a 36-year-old female. Patient reports she has been in a relationship for 5 years with her current boyfriend and has a 4- year-old daughter. Patient's current partner is not the father of her child. Of note: Patient has joint custody of her child with her mother. SUBSTANCE ABUSE HISTORY: Patient states her drugs of choice were pain pills and cocaine. Patient states her drug use was for an approximate six-month period of time. Patient states then she came to her senses and realized this was not what she was and stopped. Patient reports she has not had an alcoholic beverage for 6 years by her own choice. Patient denies any problems with alcohol or other substances. LEGAL HISTORY: Patient denies. TEST RESULTS: NA. UDS ON ADMIT: POS for Amphetamine, Benzo VITAL SIGNS: 95.9 72 18 102/58 CURRENT MEDICATIONS: See below. Prozac 10 mg by mouth every morning, Cymbalta 60 mg by mouth daily at bedtime, hydroxyzine hydrochloride 50 mg by mouth every 6 hours when necessary for anxiety/agitation, trazodone 100 mg by mouth daily at bedtime when necessary for insomnia. MENTAL STATUS EXAMINATION: Patient is a 36-year-old female who appears her stated age. Patient is pleasant and cooperative, easily engaged. Patient is morbidly obese wearing her own clothes. Pt. is laying in bed sleeping when provider approached. Patient noted to have average grooming. Pt. states she did go to some groups yesterday. Speech: Is less circumstantial, of normal rate, volume and articulation. Patient is coherent and spontaneous. Language skills are intact. Thought processes: Clearing, partially goal-directed. Thought content: Rational, logical , less circumstantial. Abstract reasoning and computation: Adequate. Description of associations: Intact. Description of abnormal or psychotic thoughts: Patient denies hallucinations, delusions, obsessions and compulsions, paranoia, preoccupations, homicidal or suicidal ideation. Patient reports she has no thoughts of cutting. Patient states she last cut in May 2016. Judgment and insight: Improving if she actually did set boundaries with boyfriend. Orientation to: Time, place, person and surroundings. Recent and remote memory: No issues. Attention span and concentration: Fair. Language: Normal. Fund of knowledge: Adequate. Mood: "Not too bad ". Affect: Appropriate, flat, constricted. DIAGNOSES: 1. Major depressive disorder, recurrent 2. Sleep disturbance 3. Rule out bipolar disorder. 4. Amphetamine use disorder ASSESSMENT: Patient is a 36-year-old morbidly obese, female with a 4- year-old daughter. Patient is having relationship issues as she describes her boyfriend as an addict. Patient reports she cannot live this way any longer. Patient states she is moved into her mother's and stepfather's residence with her 4-year-old daughter. Patient states that her mother is very supportive. As stated before mother also has joint custody of her 4-year-old daughter. Patient states she talked with her boyfriend last night and laid out some boundaries. Specifically she was not going to be with or live with him, she is staying at her mom's. Pt. also states she told him she needed some distance so she can work on her issues. Pt. had stated initially "I am his biggest enabler". Pt. reports she did not sleep more than 3-4 hours last night, staff have charted 7 hours of sleep. Discussed with patient that on admission she was POS for benzos and amphetamine. Pt. states she has an Rx for Valium which she neglected to tell this provider, denies using any amphetamine. Pt. states "I have no idea how that could be in my system. Pt. became slightly agitated when asked about the POS result. Pt's behavioral clues made her appear less than truthful in her response about UDS results. MANAGEMENT PLAN: Patient to be continually assessed and monitored while on the unit. Patient to have med dosages adjusted as needed. Maintain safety precautions. Pt. is not to isolate in her room. To attend groups and activities as well as participating in unit programming to develop effective coping strategies. Patient to be engaged in discharge planning process to ensure safe and effective discharge plan, patient to follow-up with primary care physician upon discharge. Patient to consider substance abuse and codependency support group upon discharge. Patient to resume counseling and/or therapy upon discharge. Patient to schedule and attend medication management appointments per her outpatient provider. TIME SPENT: 25 minutes. Vital Signs Vital Signs Date Time Temp Pulse Resp B/P Pulse Ox O2 Delivery O2 Flow Rate FiO2 09/03/16 06:45 95.9 72 18 102/58 09/01/16 04:23 98 Room Air Laboratory Data CBC/BMP Laboratory Tests 09/03/16 06:23 Red Blood Count 5.09, Mean Corpuscular Volume 78.7 L, Mean Corpuscular Hemoglobin 25.3 L, Mean Corpuscular Hemoglobin Concent 32.1, Red Cell Distribution Width 13.7 Current Medications Current Medications Medications (Trade) Dose Ordered Sig/Elham Route PRN Reason Start Time Stop Time Status Last Admin Dose Admin Acetaminophen (Tylenol Tab) 650 mg Q6HP PRN PO HEADACHE or DISCOMFORT 09/01/16 00:30 10/01/16 00:29 09/03/16 13:21 Al Hydrox/Mg Hydrox/Simethicone (Mylanta) 30 ml Q4HP PRN PO HEARTBURN/INDIGESTION 09/01/16 00:30 10/01/16 00:29 Chlordiazepoxide (Librium) 25 mg BIDP PRN PO WITHDRAWAL SYMPTOMS ONLY!! 09/04/16 16:00 09/11/16 15:59 Chlordiazepoxide (Librium) 25 mg TID PO 09/02/16 16:00 09/03/16 16:14 DC 09/03/16 09:49 Duloxetine HCl (Cymbalta) 20 mg QHS PO 09/03/16 21:00 10/03/16 20:59 Duloxetine HCl (Cymbalta) 60 mg QHS PO 09/02/16 21:00 09/03/16 16:15 DC 09/02/16 21:34 Duloxetine HCl (Cymbalta) 120 mg DAILY PO 09/01/16 09:00 09/01/16 15:16 DC 09/01/16 09:23 Fluoxetine HCl (PROzac) 10 mg QAM PO 09/02/16 09:00 10/02/16 08:59 09/03/16 09:49 Folic Acid (Folic Acid) 1 mg DAILY PO 09/01/16 09:00 10/01/16 08:59 09/03/16 09:49 Home Med (Med Rec Complete!) ASDIRECTED XX 09/01/16 05:00 09/01/16 06:13 DC Hydroxyzine HCl (Atarax) 50 mg Q6HP PRN PO ANXIETY/AGITATION 09/01/16 15:15 10/01/16 15:14 09/02/16 11:44 Ibuprofen (Motrin, Advil) 800 mg QHS PO 08/31/16 21:00 09/01/16 06:19 DC Ibuprofen (Motrin, Advil) 800 mg QHS PO 09/01/16 21:00 09/02/16 11:58 DC 09/01/16 20:53 Magnesium Hydroxide (Milk Of Magnesia) 30 ml DAILYPRN PRN PO CONSTIPATION 09/01/16 00:30 10/01/16 00:29 Naproxen (Naprosyn) 375 mg Q12HP PRN PO PAIN 09/02/16 12:00 10/02/16 11:59 09/03/16 09:50 Omeprazole (PriLOSEC) 20 mg DAILY PO 09/01/16 09:00 10/01/16 08:59 09/03/16 09:49 Quetiapine Fumarate (SEROquel) 50 mg QHSP PRN PO INSOMNIA 09/01/16 00:30 09/01/16 15:16 DC Spironolactone (Aldactone) 100 mg QHS PO 08/31/16 21:00 09/01/16 06:19 DC Spironolactone (Aldactone) 100 mg QHS PO 09/01/16 21:00 10/01/16 20:59 09/02/16 21:34 Thiamine HCl (Thiamine HCl) 100 mg DAILY PO 09/01/16 09:00 10/01/16 08:59 09/03/16 09:49 Tizanidine HCl (Zanaflex) 4 mg QHS PO 08/31/16 21:00 09/01/16 06:20 DC Tizanidine HCl (Zanaflex) 4 mg QHS PO 09/01/16 21:00 09/02/16 11:58 DC 09/01/16 20:53 Tizanidine HCl (Zanaflex) 4 mg TID PRN PO MUSCLE SPASMS 09/02/16 12:00 10/02/16 11:59 09/03/16 13:21 Trazodone HCl (Desyrel) 100 mg QHSP PRN PO INSOMNIA 09/01/16 15:30 10/01/16 15:29 09/02/16 21:36 Allergies Coded Allergies: TAPE (Unverified Allergy, Intermediate, BLISTERS, 09/01/16) Prochlorperazine (Unverified Adverse Reaction, Intermediate, NAUSEA, ) JESSE BLEDSOE NP Sep 03, 2016 17:53
[2016-09-03 18:00] VITALS: BP 149/74
[2016-09-03] MEDS ORDERED: DULoxetine 20 MG CAP (CYMBALTA) PO SCH (21:00)
[2016-09-03] MEDS: traZODone 100 MG TAB PO PRN (21:23)
[2016-09-03] MEDS: SPIRONOLACTONE 50 MG TAB PO SCH (21:23)
[2016-09-04 06:43] VITALS: BP 106/54
[2016-09-04] MEDS: FLUoxetine 10 MG CAP PO SCH (09:28)
[2016-09-04] MEDS: THIAMINE 100 MG TAB PO SCH (09:28)
[2016-09-04] MEDS: FOLIC ACID 1 MG TAB PO SCH (09:29)
[2016-09-04] MEDS: NAPROXEN 375 MG TAB PO PRN ×2 (09:29→21:49)
[2016-09-04] MEDS: hydrOXYzine 50 MG TAB PO PRN ×2 (09:29→21:25)
[2016-09-04] MEDS: OMEPRAZOLE 20 MG CAP PO SCH (09:29)
[2016-09-04] MEDS ORDERED: chlordiazePOXIDE 25 MG CAP PO PRN ×2 (13:00→16:00)
[2016-09-04] MEDS: ACETAMINOPHEN TAB 650MG DOSE (2X325MG) PO PRN (17:22)
[2016-09-04] MEDS: tiZANidine 4 MG TAB PO PRN ×2 (17:22→21:25)
--- NOTE | 2016-09-04 17:28 | IPNPDOC ---
[facility] Progress Note Progress Note DATE OF SERVICE: 09/04/16 HISTORY: "My head is very messed up right now, I have a 4-year-old, my boyfriend is a drug addict". Patient reports she has had thoughts of hurting herself that started 2-3 months ago. Patient states these have been worse in the last 2-3 weeks due to her boyfriend's increased drug use. PAST PSYCHIATRIC HISTORY: Patient patient states her first psychiatric episode was at age 17 when she had a suicide attempt. Patient reports she cut her bilateral wrists superficially. Patient now feels that was a cry for help, however at the time patient feels she really wanted to . Patient was not hospitalized. Patient was put into outpatient therapy and started on medications. Patient states her first Hospital psych admission was in [place]. Patient states she was here for 4-5 days due to depression and suicidal thoughts. At this hospitalization, the physicians thought she may have a diagnosis of bipolar disease. This admission is the patient's third for psychiatric reasons. ALLERGIES: Please see below. Prochlorperazine PAST MEDICAL HISTORY: 1. Acne 2. Obesity. HOME MEDICATIONS: Please see below. Cymbalta 120 mg by mouth daily, trazodone 200 mg by mouth daily at bedtime. FAMILY PSYCHIATRIC HISTORY: Patient denies. SOCIAL HISTORY: Patient is a 36-year-old female. Patient reports she has been in a relationship for 5 years with her current boyfriend and has a 4- year-old daughter. Patient's current partner is not the father of her child. Of note: Patient has joint custody of her child with her mother. SUBSTANCE ABUSE HISTORY: Patient states her drugs of choice were pain pills and cocaine. Patient states her drug use was for an approximate six-month period of time. Patient states then she came to her senses and realized this was not what she was and stopped. Patient reports she has not had an alcoholic beverage for 6 years by her own choice. Patient denies any problems with alcohol or other substances. Pt. UDS on admission POS for Benzos, Amphetamine LEGAL HISTORY: Patient denies. TEST RESULTS: NA. UDS ON ADMIT: POS for Amphetamine, Benzo VITAL SIGNS: 96.1 71 18 106/54 CURRENT MEDICATIONS: See below. Prozac 10 mg by mouth every morning, Cymbalta 20 mg by mouth daily at bedtime, hydroxyzine hydrochloride 50 mg by mouth every 6 hours when necessary for anxiety/agitation, trazodone 100 mg by mouth daily at bedtime when necessary for insomnia. Librium 25 mg po qd prn for withdrawal symptoms only. MENTAL STATUS EXAMINATION: Patient is a 36-year-old female who appears her stated age. Patient is pleasant and cooperative, easily engaged. Patient is morbidly obese wearing her own clothes. Pt. is in hallway taking breakfast tray back to cart when provider approached. Patient noted to have average grooming. Pt. states she did go to some groups yesterday. Speech: Is of normal rate, volume and articulation. Patient is coherent and spontaneous. Language skills are intact. Thought processes: Clearing, partially goal-directed. Thought content: Rational, logical. Abstract reasoning and computation: Adequate. Description of associations: Intact. Description of abnormal or psychotic thoughts: Patient denies hallucinations, delusions, obsessions and compulsions, paranoia, preoccupations, homicidal or suicidal ideation. Patient reports she has no thoughts of cutting. Patient states she last cut in May 2016. Judgment and insight: Improving if she actually did set boundaries with boyfriend. Fair overall. Orientation to: Time, place, person and surroundings. Recent and remote memory: "Good". Attention span and concentration: Fair. Language: Normal. Fund of knowledge: Adequate. Mood: "I feel all right". Affect: Appropriate, flat, constricted. DIAGNOSES: 1. Major depressive disorder, recurrent 2. Sleep disturbance 3. Rule out bipolar disorder. 4. Amphetamine use disorder ASSESSMENT: Patient is a 36-year-old morbidly obese, female with a 4- year-old daughter. Patient is having relationship issues as she describes her boyfriend as an addict. Patient reports she cannot live this way any longer. Patient states she is moved into her mother's and stepfather's residence with her 4-year-old daughter. Patient states that her mother is very supportive. As stated before mother also has joint custody of her 4-year-old daughter. Pt. had stated initially "I am his biggest enabler"(her boyfriend). Pt. reports she did not sleep more than 2 hours last night, staff have charted 7 hours of sleep for last night. Pt. continues to state to provider that she does not know how she tested POS for amphetamine. Pt. states "I have no idea how that could have gotten in my system. Pt's behavioral clues made her appear less than truthful in her response about UDS results. MANAGEMENT PLAN: Patient to be continually assessed and monitored while on the unit. Patient to have med dosages adjusted as needed. Maintain safety precautions. Pt. is not to isolate in her room. To attend groups and activities as well as participating in unit programming to develop effective coping strategies. Patient to be engaged in discharge planning process to ensure safe and effective discharge plan, patient to follow-up with primary care physician upon discharge. Patient to consider substance abuse and codependency support group upon discharge. Patient to resume counseling and/or therapy upon discharge. Patient to schedule and attend medication management appointments per her outpatient provider. TIME SPENT: 25 minutes. Vital Signs Vital Signs Date Time Temp Pulse Resp B/P Pulse Ox O2 Delivery O2 Flow Rate FiO2 09/04/16 06:43 96.1 71 18 106/54 09/01/16 04:23 98 Room Air Current Medications Current Medications Medications (Trade) Dose Ordered Sig/Elham Route PRN Reason Start Time Stop Time Status Last Admin Dose Admin Acetaminophen (Tylenol Tab) 650 mg Q6HP PRN PO HEADACHE or DISCOMFORT 09/01/16 00:30 10/01/16 00:29 09/03/16 13:21 Al Hydrox/Mg Hydrox/Simethicone (Mylanta) 30 ml Q4HP PRN PO HEARTBURN/INDIGESTION 09/01/16 00:30 10/01/16 00:29 Chlordiazepoxide (Librium) 25 mg BIDP PRN PO WITHDRAWAL SYMPTOMS ONLY!! 09/04/16 16:00 09/04/16 16:00 DC Chlordiazepoxide (Librium) 25 mg DAILYPRN PRN PO WITHDRAWAL SYMPTOMS ONLY!! 09/04/16 13:00 09/05/16 12:59 Chlordiazepoxide (Librium) 25 mg TID PO 09/02/16 16:00 09/03/16 16:14 DC 09/03/16 09:49 Duloxetine HCl (Cymbalta) 20 mg QHS PO 09/03/16 21:00 09/04/16 12:40 DC 09/03/16 21:23 Duloxetine HCl (Cymbalta) 60 mg QHS PO 09/02/16 21:00 09/03/16 16:15 DC 09/02/16 21:34 Duloxetine HCl (Cymbalta) 120 mg DAILY PO 09/01/16 09:00 09/01/16 15:16 DC 09/01/16 09:23 Fluoxetine HCl (PROzac) 10 mg QAM PO 09/02/16 09:00 10/02/16 08:59 09/04/16 09:28 Folic Acid (Folic Acid) 1 mg DAILY PO 09/01/16 09:00 10/01/16 08:59 09/04/16 09:29 Home Med (Med Rec Complete!) ASDIRECTED XX 09/01/16 05:00 09/01/16 06:13 DC Hydroxyzine HCl (Atarax) 50 mg Q6HP PRN PO ANXIETY/AGITATION 09/01/16 15:15 10/01/16 15:14 09/04/16 09:29 Ibuprofen (Motrin, Advil) 800 mg QHS PO 08/31/16 21:00 09/01/16 06:19 DC Ibuprofen (Motrin, Advil) 800 mg QHS PO 09/01/16 21:00 09/02/16 11:58 DC 09/01/16 20:53 Magnesium Hydroxide (Milk Of Magnesia) 30 ml DAILYPRN PRN PO CONSTIPATION 09/01/16 00:30 10/01/16 00:29 Naproxen (Naprosyn) 375 mg Q12HP PRN PO PAIN 09/02/16 12:00 10/02/16 11:59 09/04/16 09:29 Omeprazole (PriLOSEC) 20 mg DAILY PO 09/01/16 09:00 10/01/16 08:59 09/04/16 09:29 Quetiapine Fumarate (SEROquel) 50 mg QHSP PRN PO INSOMNIA 09/01/16 00:30 09/01/16 15:16 DC Spironolactone (Aldactone) 100 mg QHS PO 08/31/16 21:00 09/01/16 06:19 DC Spironolactone (Aldactone) 100 mg QHS PO 09/01/16 21:00 10/01/16 20:59 09/03/16 21:23 Thiamine HCl (Thiamine HCl) 100 mg DAILY PO 09/01/16 09:00 10/01/16 08:59 09/04/16 09:28 Tizanidine HCl (Zanaflex) 4 mg QHS PO 08/31/16 21:00 09/01/16 06:20 DC Tizanidine HCl (Zanaflex) 4 mg QHS PO 09/01/16 21:00 09/02/16 11:58 DC 09/01/16 20:53 Tizanidine HCl (Zanaflex) 4 mg TID PRN PO MUSCLE SPASMS 09/02/16 12:00 10/02/16 11:59 09/03/16 21:23 Trazodone HCl (Desyrel) 100 mg QHSP PRN PO INSOMNIA 09/01/16 15:30 10/01/16 15:29 09/03/16 21:23 Allergies Coded Allergies: TAPE (Unverified Allergy, Intermediate, BLISTERS, 09/01/16) Prochlorperazine (Unverified Adverse Reaction, Intermediate, NAUSEA, ) JESSE BLEDSOE NP Sep 04, 2016 17:28
[2016-09-04 18:00] VITALS: BP 143/86
[2016-09-04] MEDS: SPIRONOLACTONE 50 MG TAB PO SCH (21:25)
[2016-09-04] MEDS: traZODone 100 MG TAB PO PRN (21:25)
[2016-09-05 06:41] VITALS: BP 105/56
[2016-09-05] MEDS: OMEPRAZOLE 20 MG CAP PO SCH (09:22)
[2016-09-05] MEDS: FLUoxetine 10 MG CAP PO SCH (09:22)
[2016-09-05] MEDS: THIAMINE 100 MG TAB PO SCH (09:22)
[2016-09-05] MEDS: FOLIC ACID 1 MG TAB PO SCH (09:22)
[2016-09-05] MEDS: NAPROXEN 375 MG TAB PO PRN (16:28)
[2016-09-05 18:00] VITALS: BP 121/68
[2016-09-05] MEDS: tiZANidine 4 MG TAB PO PRN (22:04)
[2016-09-05] MEDS: traZODone 50 MG TAB PO SCH (22:04)
[2016-09-05] MEDS: SPIRONOLACTONE 50 MG TAB PO SCH (22:04)
[2016-09-05] MEDS: ACETAMINOPHEN TAB 650MG DOSE (2X325MG) PO PRN (22:05)
--- NOTE | 2016-09-06 03:53 | IPN ---
DATE: 09/05/2016 CHIEF COMPLAINT: "I cannot sleep too well." SUBJECTIVE: Patient is tolerating well the medication and denies any side effects. Patient is currently taking Prozac 10 mg daily and trazodone 100 mg. Complains of insomnia. MENTAL STATUS EXAMINATION: Patient is dressed in [facility]. Patient is cooperative during exam. Speech is low and monotone. Mood is depressed and anxious. Affect is restricted. No evidence of delusions or hallucinations, and mood is fair. Patient is fully oriented. Memory is intact. Thinking is logical. Thought content is appropriate. Patient is able to contract for safety, and denies suicidal or homicidal ideation during the interview. Insight and judgment is limited. ASSESSMENT: 1. Depression. 2. Amphetamine abuse. 3. Insomnia. PLAN: 1. Increase Prozac to 20 mg by mouth every morning. 2. Increase trazodone to 150 mg by mouth at bedtime. 3. Continue medication management, individual and group therapy.
[2016-09-06 06:25] VITALS: BP 112/65
[2016-09-06] MEDS: OMEPRAZOLE 20 MG CAP PO SCH (08:41)
[2016-09-06] MEDS: FOLIC ACID 1 MG TAB PO SCH (08:41)
[2016-09-06] MEDS: THIAMINE 100 MG TAB PO SCH (08:41)
[2016-09-06] MEDS: NAPROXEN 375 MG TAB PO PRN ×2 (08:43→23:04)
[2016-09-06] MEDS ORDERED: FLUoxetine 20 MG CAP PO SCH (09:00)
[2016-09-06] MEDS: ACETAMINOPHEN TAB 650MG DOSE (2X325MG) PO PRN (12:36)
[2016-09-06 18:00] VITALS: BP 144/89
[2016-09-06] MEDS: traZODone 50 MG TAB PO SCH (23:02)
[2016-09-06] MEDS: tiZANidine 4 MG TAB PO PRN (23:03)
[2016-09-06] MEDS: SPIRONOLACTONE 50 MG TAB PO SCH (23:04)
[2016-09-07 06:33] VITALS: BP 113/56
[2016-09-07] MEDS ORDERED: HYDRO50TAB PO (08:08)
[2016-09-07] MEDS ORDERED: FLUO10CA9 PO (08:10)
[2016-09-07] MEDS ORDERED: TRAZ10TA PO (08:10)
[2016-09-07] MEDS ORDERED: traZODone 100 MG TAB PO PRN (08:15)
[2016-09-07] MEDS: THIAMINE 100 MG TAB PO SCH (08:42)
[2016-09-07] MEDS: OMEPRAZOLE 20 MG CAP PO SCH (08:42)
[2016-09-07] MEDS: FOLIC ACID 1 MG TAB PO SCH (08:42)
[2016-09-07] MEDS: hydrOXYzine 50 MG TAB PO PRN (08:42)
[2016-09-07] MEDS: NAPROXEN 375 MG TAB PO PRN (08:43)
[2016-09-07] MEDS ORDERED: FLUoxetine 10 MG CAP PO SCH (09:00)
--- NOTE | 2016-09-07 12:26 | DS.PDOC ---
[facility] Discharge Summary Discharge Summary DATE OF ADMISSION: Sep 01, 2016 at 04:23 DATE OF DISCHARGE: Sep 07, 2016 at 11:45 DISCHARGE DIAGNOSES: 1. Major depressive disorder, recurrent 2. Insomnia 3. Amphetamine use disorder REASON FOR ADMISSION: "My head is very messed up right now, I have a 4-year-old , my boyfriend is a drug addict". Patient reports she has had thoughts of hurting herself that started 2-3 months ago. Patient states these have been worse in the last 2-3 weeks due to her boyfriend's increased drug use. TEST RESULTS: UDS ON ADMIT: POS for Amphetamine, Benzo PAST PSYCHIATRIC HISTORY: Patient patient states her first psychiatric episode was at age 17 when she had a suicide attempt. Patient reports she cut her bilateral wrists superficially. Patient now feels that was a cry for help, however at the time patient feels she really wanted to . Patient was not hospitalized. Patient was put into outpatient therapy and started on medications. Patient states her first Hospital psych admission was in [place]. Patient states she was here for 4-5 days due to depression and suicidal thoughts. At this hospitalization, the physicians thought she may have a diagnosis of bipolar disease. This admission is the patient's third for psychiatric reasons. FAMILY PSYCHIATRIC HISTORY: Patient denies. SOCIAL HISTORY: Patient is a 36-year-old female. Patient reports she has been in a relationship for 5 years with her current boyfriend and has a 4- year-old daughter. Patient's current partner is not the father of her child. Of note: Patient has joint custody of her child with her mother. SUBSTANCE ABUSE HISTORY: Patient states her drugs of choice were pain pills and cocaine. Patient states her drug use was for an approximate six-month period of time. Patient states then she came to her senses and realized this was not what she was and stopped. Patient reports she has not had an alcoholic beverage for 6 years by her own choice. Patient denies any problems with alcohol or other substances. Pt. UDS on admission POS for Benzos, Amphetamine LEGAL HISTORY: Patient denies. TREATMENT AND PROGRESS ON THE UNIT: Patient is a 36-year-old morbidly obese, female with a 4-year-old daughter. Patient is having relationship issues as she describes her boyfriend as an addict. Patient reports she cannot live this way any longer. Patient states she is moved into her mother's and stepfather's residence with her 4-year-old daughter. Patient states that her mother is very supportive. As stated before mother also has joint custody of her 4-year-old daughter. Pt. had stated initially "I am his biggest enabler"( her boyfriend). Pt. reports "Not good at all", when asked how she slept. Pt. reports only sleeping 4-5 hours as "I was up and down all night". Staff have charted 5 hours of sleep for last night. Pt. continues to state to provider that she does not know how she tested POS for amphetamine. Pt. states "I have no idea how that could have gotten in my system. Pt's behavioral clues made her appear less than truthful in her response about UDS results. MENTAL STATUS EXAMINATION AT DISCHARGE: Patient is a 36-year-old female who appears her stated age. Patient is pleasant and cooperative, easily engaged. Patient is morbidly obese wearing her own clothes. Pt. is in lounge eating breakfast when provider approached. Patient noted to have average grooming. Pt. states she did go to some groups over the weekend. Speech: Is of normal rate, volume and articulation. Patient is coherent and spontaneous. Language skills are intact. Thought processes: Clearing, Some what goal-directed. Thought content: Rational, logical. Abstract reasoning and computation: Adequate. Description of associations: Intact. Description of abnormal or psychotic thoughts: Patient denies hallucinations, delusions, obsessions and compulsions, paranoia, preoccupations, homicidal or suicidal ideation. Pt. is stable for discharge. Patient reports she has no thoughts of cutting. Patient states she last cut in May 2016. Judgment and insight: Improving, if she actually did set boundaries with boyfriend. Fair overall. Orientation to: Time, place, person and surroundings. Recent and remote memory: "Good". Attention span and concentration: Fair. Language: Normal. Fund of knowledge: Adequate. Mood: "Just a little anxious". Pt. states she just has reservations about her ex, "I hope I don't cave (in)". Affect: Appropriate, flat , constricted. MEDICATIONS ON DISCHARGE: Prozac 10 mg by mouth every morning hydroxyzine hydrochloride 50 mg by mouth every 6 hours when necessary for anxiety/agitation trazodone 100 mg by mouth daily at bedtime when necessary for insomnia. DISCHARGE PLAN: Patient to follow-up with primary care physician upon discharge. Patient to schedule and attend substance abuse and codependency support group upon discharge. Patient to resume counseling and/or therapy upon discharge. Patient to schedule and attend medication management appointments per her outpatient provider. The amount of time spent in the coordination of care for this patient was approximately 25 minutes. Vital Signs Vital Sign - Last 24 Hours 09/06/16 09/07/16 18:00 06:33 Temp 97.9 97.4 Pulse 99 80 Resp 16 20 B/P 144/89 113/56 Laboratory Data Microbiology Microbiology 09/01/16 Urine Culture - Final, Complete Medications Scheduled Fluoxetine HCl (Fluoxetine HCl) 10 Mg Cap #7 10 MG PO QAM Anxiety/Depression Folic Acid (Folic Acid) 1 Mg Tab 1 MG PO DAILY supplement (Reported) Omeprazole (Omeprazole) 20 Mg Cap 20 MG PO DAILY GERD (Reported) Spironolactone (Spironolactone) 100 Mg Tab 100 MG PO QHS diuretic (Reported) Thiamine HCl (Vitamin B-1) 100 Mg Tab 100 MG PO DAILY supplement (Reported) Scheduled PRN Hydroxyzine HCl (Hydroxyzine HCl) 50 Mg Tab #20 50 MG PO Q6HP PRN PRN ANXIETY/ AGITATION Naproxen Sodium (Naproxen Sodium) 500 Mg Tab 500 MG PO DAILYPRN PRN PRN PAIN ( Reported) Tizanidine Hydrochloride (Tizanidine HCl) 4 Mg Cap 4 MG PO TID PRN PRN MUSCLE SPASMS (Reported) Trazodone HCl (Trazodone HCl) 100 Mg Tab #10 100 MG PO QHSP PRN PRN INSOMNIA Allergies Coded Allergies: TAPE (Unverified Allergy, Intermediate, BLISTERS, 09/01/16) Prochlorperazine (Unverified Adverse Reaction, Intermediate, NAUSEA, ) JESSE BLEDSOE NP Sep 07, 2016 12:26
== END 2016-09-07 11:45 | disposition home or self-care (01) | DRG 751 ==
LOC: M ED 22:03 → M PSY 09-01 04:23
PROVIDERS: ADMIT Psychiatry & Neurology Psychiatry; ATTEND Psychiatry & Neurology Psychiatry
DX: F33.9 Major depressive disorder, recurrent, unspecified (principal); Z68.44 Body mass index [BMI] 60.0-69.9, adult; E66.01 Morbid (severe) obesity due to excess calories; F15.90 Other stimulant use, unspecified, uncomplicated; M54.5 Low back pain; G47.00 Insomnia, unspecified; D72.829 Elevated white blood cell count, unspecified; E28.2 Polycystic ovarian syndrome; L70.9 Acne, unspecified; K21.9 Gastro-esophageal reflux disease without esophagitis; Z91.5 Personal history of self-harm; Z79.899 Other long term (current) drug therapy; Z91.09 Other allergy status, other than to drugs and biological substances; Z88.8 Allergy status to other drugs, medicaments and biological substances

== ENCOUNTER 2017-08-04 16:56 | Inpatient (IN) | payer OTHER ==
[2017-08-04 18:16] LABS: HEMATOCRIT 39.8 % (36.0-47.0); HEMOGLOBIN 13.4 g/dl (12.0-16.0); MEAN CORPUSCULAR HEMOGLOBIN 26.3 pg (27.0-33.0); MEAN CORPUSCULAR HGB CONC 33.7 g/dl (32.0-36.5); MEAN CORPUSCULAR VOLUME 78.2 fl (80.0-96.0); PLATELET COUNT, AUTOMATED 341 10^3/uL (150-450); RED BLOOD COUNT 5.09 10^6/uL (4.00-5.40); RED CELL DISTRIBUTION WIDTH 13.6 % (11.5-14.5); WHITE BLOOD COUNT 8.5 10^3/uL (4.0-10.0)
[2017-08-04 18:36] LABS: CONTROL LINE HCG INT CTR LINE PRESENT; HCG, SERUM QUALITATIVE NEGATIVE (NEGATIVE)
[2017-08-04 18:43] LABS: AMPHETAMINES LEVEL URINE NEGATIVE (NEGATIVE); BARBITURATES URINE NEGATIVE (NEGATIVE); BENZODIAZEPINES URINE NEGATIVE (NEGATIVE); CANNABINOIDS URINE NEGATIVE (NEGATIVE); COCAINE METABOLITE URINE NEGATIVE (NEGATIVE); METHADONE URINE NEGATIVE (NEGATIVE); OPIATES URINE NEGATIVE (NEGATIVE); PHENCYCLIDINE URINE NEGATIVE (NEGATIVE)
[2017-08-04 18:58] LABS: ACETAMINOPHEN LEVEL < 2.0 UG/ML (10.0-30.0); ALBUMIN 3.6 GM/DL (3.2-5.2); ALBUMIN/GLOBULIN RATIO 1.16 (1.00-1.93); ALKALINE PHOSPHATASE 83 U/L (45-117); ALT/SGPT 41 U/L (12-78); ANION GAP 8 MEQ/L (8-16); AST/SGOT 17 U/L (7-37); BILIRUBIN,DIRECT 0.1 MG/DL (0.0-0.2); BILIRUBIN,TOTAL 0.2 MG/DL (0.2-1.0); BLOOD UREA NITROGEN 9 MG/DL (7-18); CALCIUM LEVEL 8.4 MG/DL (8.5-10.1); CARBON DIOXIDE LEVEL 26 MEQ/L (21-32); CHLORIDE LEVEL 108 MEQ/L (98-107); CREATININE FOR GFR 0.78 MG/DL (0.55-1.02); ETHYL ALCOHOL (ETHANOL) < 0.003 % (0.000-0.010); GLOMERULAR FILTRATION RATE > 60.0 (>60); GLUCOSE, FASTING 84 MG/DL (70-105); POTASSIUM SERUM 3.6 MEQ/L (3.5-5.1); SALICYLATE LEVEL < 1.7 MG/DL (5.0-30.0); SODIUM LEVEL 142 MEQ/L (136-145); TOTAL PROTEIN 6.7 GM/DL (6.4-8.2)
[2017-08-04] MEDS ORDERED: traZODone 50 MG TAB PO (19:15)
[2017-08-04] MEDS ORDERED: MOM 30ML SUSPENSION UDC PO (19:15)
[2017-08-04] MEDS ORDERED: MAALOX 30 ML SUSP *UDC PO (19:15)
[2017-08-04] MEDS: CHLORZOXAZONE 500 MG TAB PO (21:00)
[2017-08-04] MEDS: traZODone 100 MG TAB PO (21:00)
[2017-08-05] MEDS ORDERED: NAPROXEN 250 MG TAB PO (01:45)
[2017-08-05] MEDS: THIAMINE 100 MG TAB PO (09:19)
[2017-08-05] MEDS: FOLIC ACID 1 MG TAB PO (09:19)
[2017-08-05] MEDS ORDERED: LORazepam 0.5 MG TAB PO (11:30)
[2017-08-05] MEDS: FLUoxetine 10 MG CAP PO (13:15)
[2017-08-05] MEDS: LIDOCAINE 5% (LIDODERM) PATCH TD (13:15)
[2017-08-05] MEDS: CHLORZOXAZONE 500 MG TAB PO ×2 (14:25→20:49)
[2017-08-05] MEDS: hydrOXYzine 50 MG TAB PO (16:27)
[2017-08-05] MEDS: traZODone 100 MG TAB PO (20:49)
[2017-08-05] MEDS: **NOTE PATIENT COMMENT** MISC XX (20:50)
[2017-08-06] MEDS: FLUoxetine 10 MG CAP PO (09:46)
[2017-08-06] MEDS: CHLORZOXAZONE 500 MG TAB PO ×2 (09:46→20:47)
[2017-08-06] MEDS: FOLIC ACID 1 MG TAB PO (09:46)
[2017-08-06] MEDS: LIDOCAINE 5% (LIDODERM) PATCH TD (09:46)
[2017-08-06] MEDS: THIAMINE 100 MG TAB PO (09:46)
[2017-08-06] MEDS: ZIPRASIDONE 20MG CAPSULE (GEODON) PO (17:44)
[2017-08-06] MEDS: traZODone 100 MG TAB PO (20:47)
[2017-08-06] MEDS: **NOTE PATIENT COMMENT** MISC XX ×2 (20:48→20:52)
[2017-08-07] MEDS: LIDOCAINE 5% (LIDODERM) PATCH TD (08:20)
[2017-08-07] MEDS: CHLORZOXAZONE 500 MG TAB PO ×2 (08:21→21:27)
[2017-08-07] MEDS: THIAMINE 100 MG TAB PO (08:21)
[2017-08-07] MEDS: FOLIC ACID 1 MG TAB PO (08:21)
[2017-08-07] MEDS: FLUoxetine 10 MG CAP PO (08:21)
[2017-08-07] MEDS: ZIPRASIDONE 20MG CAPSULE (GEODON) PO (17:33)
[2017-08-07] MEDS: zolPIDEM TARTRATE 10MG TAB PO (21:27)
[2017-08-07] MEDS: **NOTE PATIENT COMMENT** MISC XX (21:55)
[2017-08-08] MEDS: THIAMINE 100 MG TAB PO (08:38)
[2017-08-08] MEDS: FOLIC ACID 1 MG TAB PO (08:38)
[2017-08-08] MEDS: FLUoxetine 10 MG CAP PO (08:38)
[2017-08-08] MEDS: CHLORZOXAZONE 500 MG TAB PO ×2 (08:38→20:06)
[2017-08-08] MEDS: LIDOCAINE 5% (LIDODERM) PATCH TD (08:39)
[2017-08-08] MEDS: ZIPRASIDONE 20MG CAPSULE (GEODON) PO (17:51)
[2017-08-08] MEDS: zolPIDEM TARTRATE 10MG TAB PO (20:06)
[2017-08-08] MEDS: **NOTE PATIENT COMMENT** MISC XX (20:07)
[2017-08-09] MEDS: CHLORZOXAZONE 500 MG TAB PO ×2 (08:31→20:44)
[2017-08-09] MEDS: LIDOCAINE 5% (LIDODERM) PATCH TD (08:31)
[2017-08-09] MEDS: FLUoxetine 20 MG CAP PO (08:31)
[2017-08-09] MEDS: THIAMINE 100 MG TAB PO (08:32)
[2017-08-09] MEDS: FOLIC ACID 1 MG TAB PO (08:32)
[2017-08-09] MEDS: ACETAMINOPHEN TAB 650MG DOSE (2X325MG) PO (13:11)
[2017-08-09] MEDS: ZIPRASIDONE 20MG CAPSULE (GEODON) PO (17:53)
[2017-08-09] MEDS: zolPIDEM TARTRATE 5 MG TAB PO (20:44)
[2017-08-09] MEDS: **NOTE PATIENT COMMENT** MISC XX (20:44)
[2017-08-10] MEDS: CHLORZOXAZONE 500 MG TAB PO (08:35)
[2017-08-10] MEDS: LIDOCAINE 5% (LIDODERM) PATCH TD (08:35)
[2017-08-10] MEDS: FOLIC ACID 1 MG TAB PO (08:35)
[2017-08-10] MEDS: THIAMINE 100 MG TAB PO (08:35)
[2017-08-10] MEDS: FLUoxetine 20 MG CAP PO (08:35)
== END 2017-08-10 11:54 | disposition home or self-care (01) | DRG 753 ==
LOC: M ED 16:56 → M ED INP 19:08 → M PSY 20:24
DX: F31.60 Bipolar disorder, current episode mixed, unspecified (principal); Z68.43 Body mass index [BMI] 50.0-59.9, adult; F40.10 Social phobia, unspecified; M51.36 Other intervertebral disc degeneration, lumbar region; E66.9 Obesity, unspecified; E28.2 Polycystic ovarian syndrome; M46.1 Sacroiliitis, not elsewhere classified; K21.9 Gastro-esophageal reflux disease without esophagitis; L70.9 Acne, unspecified; Z98.84 Bariatric surgery status; Z63.0 Problems in relationship with spouse or partner; Z59.9 Problem related to housing and economic circumstances, unspecified

== ENCOUNTER 2017-10-20 14:28 | Inpatient (IN) | payer OTHER ==
[2017-10-20] MEDS: ACETAMINOPHEN 325 MG TAB PO (15:00)
[2017-10-20 16:24] LABS: HEMATOCRIT 43.9 % (36.0-47.0); MEAN CORPUSCULAR HGB CONC 34.2 g/dl (32.0-36.5); MEAN CORPUSCULAR VOLUME 79.1 fl (80.0-96.0); PLATELET COUNT, AUTOMATED 380 10^3/uL (150-450); RED BLOOD COUNT 5.55 10^6/uL (4.00-5.40); RED CELL DISTRIBUTION WIDTH 13.5 % (11.5-14.5); WHITE BLOOD COUNT 17.8 10^3/uL (4.0-10.0)
[2017-10-20 16:47] LABS: AMPHETAMINES LEVEL URINE NEGATIVE (NEGATIVE); BARBITURATES URINE NEGATIVE (NEGATIVE); BENZODIAZEPINES URINE NEGATIVE (NEGATIVE); CANNABINOIDS URINE NEGATIVE (NEGATIVE); COCAINE METABOLITE URINE NEGATIVE (NEGATIVE); METHADONE URINE NEGATIVE (NEGATIVE); OPIATES URINE NEGATIVE (NEGATIVE); PHENCYCLIDINE URINE NEGATIVE (NEGATIVE)
[2017-10-20 16:56] LABS: ACETAMINOPHEN LEVEL < 2.0 UG/ML (10.0-30.0); ALBUMIN 3.7 GM/DL (3.2-5.2); ALKALINE PHOSPHATASE 109 U/L (45-117); ALT/SGPT 34 U/L (12-78); ANION GAP 7 MEQ/L (8-16); AST/SGOT 10 U/L (7-37); BILIRUBIN,DIRECT 0.2 MG/DL (0.0-0.2); BILIRUBIN,TOTAL 0.5 MG/DL (0.2-1.0); BLOOD UREA NITROGEN 10 MG/DL (7-18); CARBON DIOXIDE LEVEL 28 MEQ/L (21-32); CHLORIDE LEVEL 104 MEQ/L (98-107); CREATININE FOR GFR 0.67 MG/DL (0.55-1.30); ETHYL ALCOHOL (ETHANOL) 0.003 % (0.000-0.010); GLOMERULAR FILTRATION RATE > 60.0 (>60); GLUCOSE, FASTING 86 MG/DL (70-100); POTASSIUM SERUM 3.8 MEQ/L (3.5-5.1); SALICYLATE LEVEL < 1.7 MG/DL (5.0-30.0); SODIUM LEVEL 139 MEQ/L (136-145); TOTAL PROTEIN 7.4 GM/DL (6.4-8.2)
[2017-10-20 16:58] LABS: CONTROL LINE HCG INT CTR LINE PRESENT; HCG, SERUM QUALITATIVE INDETERM. (NEGATIVE)
[2017-10-20 17:19] LABS: HCG, SERUM QUANTITATIVE 9 MIU/ML
[2017-10-20] MEDS ORDERED: MAALOX 30 ML SUSP *UDC PO (18:15)
[2017-10-20] MEDS ORDERED: MOM 30ML SUSPENSION UDC PO (18:15)
[2017-10-20] MEDS: ACETAMINOPHEN TAB 650MG DOSE (2X325MG) PO (21:56)
[2017-10-21 08:15] LABS: HEMOGLOBIN 15.5 g/dl (12.0-16.0); MEAN CORPUSCULAR HEMOGLOBIN 26.9 pg (27.0-33.0); MEAN CORPUSCULAR HGB CONC 34.4 g/dl (32.0-36.5); MEAN CORPUSCULAR VOLUME 78.1 fl (80.0-96.0); PLATELET COUNT, AUTOMATED 413 10^3/uL (150-450); RED BLOOD COUNT 5.76 10^6/uL (4.00-5.40); RED CELL DISTRIBUTION WIDTH 13.5 % (11.5-14.5); WHITE BLOOD COUNT 15.3 10^3/uL (4.0-10.0)
[2017-10-21 08:47] LABS: ALBUMIN 3.6 GM/DL (3.2-5.2); ALBUMIN/GLOBULIN RATIO 0.92 (1.00-1.93); ALKALINE PHOSPHATASE 110 U/L (45-117); ALT/SGPT 31 U/L (12-78); ANION GAP 8 MEQ/L (8-16); AST/SGOT 8 U/L (7-37); BILIRUBIN,TOTAL 0.6 MG/DL (0.2-1.0); BLOOD UREA NITROGEN 11 MG/DL (7-18); CALCIUM LEVEL 8.8 MG/DL (8.5-10.1); CARBON DIOXIDE LEVEL 25 MEQ/L (21-32); CHLORIDE LEVEL 105 MEQ/L (98-107); CREATININE FOR GFR 0.66 MG/DL (0.55-1.30); GLOMERULAR FILTRATION RATE > 60.0 (>60); GLUCOSE, FASTING 95 MG/DL (70-100); HCG, SERUM QUANTITATIVE 12 MIU/ML; POTASSIUM SERUM 3.6 MEQ/L (3.5-5.1); SODIUM LEVEL 138 MEQ/L (136-145); TOTAL PROTEIN 7.5 GM/DL (6.4-8.2)
[2017-10-21] MEDS ORDERED: PRENATAL VITAMINS CHEWABLE TABLET PO (09:00)
[2017-10-21 10:12] LABS: AMORPHOUS SEDIMENT RFX SMALL (NEGATIVE); KETONE, URINE AUTO RFX TRACE mg/dL (NEGATIVE); MUCUS, URINE RFX LARGE (NEGATIVE); NITRITE, URINE AUTO RFX NEGATIVE (NEGATIVE); RBC, URINE AUTO RFX 6 /HPF (0-3); SPECIFIC GRAVITY UR AUTO RFX 1.023 (1.002-1.035); SQUAM EPITHELIAL CELL UR AURFX 9 /HPF (0-6)
[2017-10-21 10:17] LABS: LEUKOCYTE ESTERASE UR AUTO RFX 3+ (NEGATIVE); WBC, URINE AUTO RFX 18 /HPF (0-3)
[2017-10-21] MEDS: FLUoxetine 20 MG CAP PO (11:45)
[2017-10-21] MEDS: ACETAMINOPHEN TAB 650MG DOSE (2X325MG) PO (11:46)
[2017-10-21] MEDS: LURASIDONE 20 MG TAB (LATUDA) PO (17:40)
[2017-10-21] MEDS: PRENATAL VITAMINS CHEWABLE TABLET PO (21:17)
[2017-10-22 08:26] LABS: HEMATOCRIT 43.9 % (36.0-47.0); HEMOGLOBIN 14.7 g/dl (12.0-16.0); MEAN CORPUSCULAR HEMOGLOBIN 26.4 pg (27.0-33.0); MEAN CORPUSCULAR HGB CONC 33.5 g/dl (32.0-36.5); MEAN CORPUSCULAR VOLUME 78.8 fl (80.0-96.0); PLATELET COUNT, AUTOMATED 384 10^3/uL (150-450); RED BLOOD COUNT 5.57 10^6/uL (4.00-5.40); RED CELL DISTRIBUTION WIDTH 13.5 % (11.5-14.5); WHITE BLOOD COUNT 14.1 10^3/uL (4.0-10.0)
[2017-10-22] MEDS: FLUoxetine 20 MG CAP PO (08:55)
[2017-10-22 08:56] LABS: HCG, SERUM QUANTITATIVE 23 MIU/ML
[2017-10-22] MEDS: ACETAMINOPHEN TAB 650MG DOSE (2X325MG) PO (09:50)
== END 2017-10-22 12:10 | disposition home or self-care (01) | DRG 753 ==
LOC: M ED 14:28 → M ED INP 18:08 → M PSY 19:45
DX: F31.9 Bipolar disorder, unspecified (principal); Z68.42 Body mass index [BMI] 45.0-49.9, adult; E28.2 Polycystic ovarian syndrome; F41.1 Generalized anxiety disorder; M54.5 Low back pain; E66.9 Obesity, unspecified; K21.9 Gastro-esophageal reflux disease without esophagitis; L70.9 Acne, unspecified; Z98.84 Bariatric surgery status; Z90.49 Acquired absence of other specified parts of digestive tract; Z79.899 Other long term (current) drug therapy; Z88.5 Allergy status to narcotic agent; Z62.810 Personal history of physical and sexual abuse in childhood; Z88.8 Allergy status to other drugs, medicaments and biological substances; Z91.048 Other nonmedicinal substance allergy status; Z91.5 Personal history of self-harm

== ENCOUNTER → 2019-03-01 | Outpatient (REF) | payer OTHER ==
[~2019-03-01] MED LIST changes: +CALC250T PO; +CHLO500TA PO; +DULO1CAP6 PO; +FLON1SPR; +FLUO10CA9 PO; +FLUO20CA19 PO; +FOLI1TAB11 PO; +GEOD60CA PO; +HYDR50TA70 PO; +HYDRO50TAB PO; +IBUP1TAB7 PO; -IBUPROFEN 800 MG TAB PO SCH; +LATU20TA PO; +NAPR-885 PO; +NAPR1TAB86 PO; +OMEP20CA4 PO; +PRED20TA PO; +SPIR100T3 PO; -SPIRONOLACTONE 50 MG TAB PO SCH; +TIZA4CAP PO; +TRAZ-163 PO; +TRAZ10TA PO; +TRAZ300T2 PO; +VALI5TAB PO; +VITA100T8 PO; +VITA500T17 PO; +ZIPR60CA11 PO; -tiZANidine 4 MG TAB PO SCH
== END ==
LOC: M LAB LCGH 13:05
DX: L73.9 Follicular disorder, unspecified (principal)

== ENCOUNTER 2020-06-04 17:23 | Emergency (ER) | payer OTHER ==
[~2020-06-04] VITALS: Ht 160 cm; Wt 125.1 kg
[2020-06-04 17:23] VITALS: BP 131/83
[~2020-06-04 17:23] MED LIST changes: -FLUO20CA19 PO; +FLUO20CA22 PO; +HYDR1TAB33 PO; -HYDRO50TAB PO; +OMEP1CAP73 PO; -OMEP20CA4 PO; -TRAZ-163 PO; +TRAZ-257 PO; -TRAZ10TA PO; +TRAZ1TAB12 PO
[2020-06-04] MEDS ORDERED: REME15TA PO ×2 (17:34→22:39)
[2020-06-04] MEDS ORDERED: BUPREN-NALOX SL (17:34)
[2020-06-04] MEDS ORDERED: DOXE50CA PO ×2 (17:34→22:39)
[2020-06-04] MEDS ORDERED: REXU1TAB5 PO ×2 (17:34→22:39)
[2020-06-04 18:34] LABS: HEMATOCRIT 39.4 % (36.0-47.0); MEAN CORPUSCULAR HEMOGLOBIN 22.4 pg (27.0-33.0); MEAN CORPUSCULAR HGB CONC 30.5 g/dl (32.0-36.5); MEAN CORPUSCULAR VOLUME 73.5 fl (80.0-96.0); PLATELET COUNT, AUTOMATED 475 10^3/uL (150-450); RED BLOOD COUNT 5.36 10^6/uL (4.00-5.40); WHITE BLOOD COUNT 8.9 10^3/uL (4.0-10.0)
[2020-06-04 18:48] LABS: HCG, SERUM QUALITATIVE NEGATIVE (NEGATIVE)
[2020-06-04 18:58] LABS: AMPHETAMINES LEVEL URINE NEGATIVE (NEGATIVE); BARBITURATES URINE NEGATIVE (NEGATIVE); BENZODIAZEPINES URINE NEGATIVE (NEGATIVE); CANNABINOIDS URINE NEGATIVE (NEGATIVE); COCAINE METABOLITE URINE NEGATIVE (NEGATIVE); METHADONE URINE NEGATIVE (NEGATIVE); OPIATES URINE NEGATIVE (NEGATIVE); PHENCYCLIDINE URINE NEGATIVE (NEGATIVE)
[2020-06-04 19:11] LABS: ALBUMIN 3.3 GM/DL (3.2-5.2); ALT/SGPT 18 U/L (12-78); BILIRUBIN,DIRECT 0.1 MG/DL (0.0-0.2); BILIRUBIN,TOTAL 0.3 MG/DL (0.2-1.0); BLOOD UREA NITROGEN 11 MG/DL (7-18); CALCIUM LEVEL 9.1 MG/DL (8.5-10.1); CARBON DIOXIDE LEVEL 24 MEQ/L (21-32); CHLORIDE LEVEL 109 MEQ/L (98-107); CREATININE FOR GFR 0.82 MG/DL (0.55-1.30); ETHYL ALCOHOL (ETHANOL) < 0.003 % (0.000-0.010); GLOMERULAR FILTRATION RATE > 60.0 (>60); GLUCOSE, FASTING 92 MG/DL (70-100); POTASSIUM SERUM 4.2 MEQ/L (3.5-5.1); SALICYLATE LEVEL < 1.7 MG/DL (5.0-30.0); SODIUM LEVEL 139 MEQ/L (136-145); TOTAL PROTEIN 7.1 GM/DL (6.4-8.2)
[2020-06-04 19:12] LABS: ACETAMINOPHEN LEVEL < 2.0 UG/ML (10.0-30.0)
[2020-06-04] MEDS ORDERED: MIRTAZAPINE 15 MG TAB PO SCH (21:00)
[2020-06-04] MEDS ORDERED: CYANOCOBALAMIN 500 MCG TAB PO SCH (21:00)
[2020-06-04] MEDS ORDERED: DOXEPIN 25 MG CAP PO ONE (21:00)
[2020-06-04] MEDS ORDERED: CALC1TAB72 PO (22:39)
[2020-06-04] MEDS ORDERED: SUBO8MIS SL (22:39)
== END 2020-06-04 23:31 | disposition home or self-care (01) ==
LOC: M ED 17:23
DX: F32.9 Major depressive disorder, single episode, unspecified (principal); K21.9 Gastro-esophageal reflux disease without esophagitis; E28.2 Polycystic ovarian syndrome; F41.9 Anxiety disorder, unspecified; F60.3 Borderline personality disorder; Z88.5 Allergy status to narcotic agent; Z88.8 Allergy status to other drugs, medicaments and biological substances; Z98.84 Bariatric surgery status; Z79.899 Other long term (current) drug therapy
CPT/HCPCS: 36415; 80048; 80076; 80307; 84443; 84703; 85027; 99284; G0480

== ENCOUNTER 2021-09-01 15:30 | Emergency (ER) | payer OTHER ==
[~2021-09-01] VITALS: Ht 162.6 cm; Wt 145.0 kg
[~2021-09-01 15:30] MED LIST changes: +BUPREN-NALOX SL; +CALC1TAB72 PO; +DOXE50CA PO; +MIRT-62 PO; +REXU1TAB5 PO; +SUBO8MIS SL
[2021-09-01] MEDS ORDERED: BUSP1TAB PO ×2 (16:06→20:39)
[2021-09-01 16:37] LABS: HEMATOCRIT 38.4 % (36.0-47.0); MEAN CORPUSCULAR HGB CONC 31.3 g/dl (32.0-36.5); MEAN CORPUSCULAR VOLUME 70.3 fl (80.0-96.0); PLATELET COUNT, AUTOMATED 518 10^3/uL (150-450); RED BLOOD COUNT 5.46 10^6/uL (4.00-5.40); WHITE BLOOD COUNT 11.7 10^3/uL (4.0-10.0)
[2021-09-01 17:00] LABS: AMPHETAMINES LEVEL URINE NEGATIVE (NEGATIVE); BARBITURATES URINE NEGATIVE (NEGATIVE); BENZODIAZEPINES URINE NEGATIVE (NEGATIVE); CANNABINOIDS URINE NEGATIVE (NEGATIVE); COCAINE METABOLITE URINE NEGATIVE (NEGATIVE); METHADONE URINE NEGATIVE (NEGATIVE); OPIATES URINE NEGATIVE (NEGATIVE); PHENCYCLIDINE URINE NEGATIVE (NEGATIVE)
[2021-09-01 17:08] LABS: HCG, SERUM QUALITATIVE NEGATIVE (NEGATIVE)
[2021-09-01 17:13] LABS: ACETAMINOPHEN LEVEL < 2.0 UG/ML (10.0-30.0); ALBUMIN 3.5 GM/DL (3.2-5.2); ALT/SGPT 15 U/L (12-78); BILIRUBIN,DIRECT 0.1 MG/DL (0.0-0.2); BILIRUBIN,TOTAL 0.2 MG/DL (0.2-1.0); BLOOD UREA NITROGEN 6 MG/DL (7-18); CARBON DIOXIDE LEVEL 24 MEQ/L (21-32); CHLORIDE LEVEL 108 MEQ/L (98-107); CREATININE FOR GFR 0.77 MG/DL (0.55-1.30); ETHYL ALCOHOL (ETHANOL) < 0.003 % (0.000-0.010); GLOMERULAR FILTRATION RATE > 60.0 (>58); GLUCOSE, FASTING 94 MG/DL (70-100); SALICYLATE LEVEL < 1.7 MG/DL (5.0-30.0); SODIUM LEVEL 139 MEQ/L (136-145); TOTAL PROTEIN 7.2 GM/DL (6.4-8.2)
[2021-09-01 19:17] LABS: RSV AMPLIFICATION NEGATIVE (NEGATIVE)
[2021-09-01] MEDS ORDERED: DOXE25CA PO (19:53)
[2021-09-01] MEDS ORDERED: SUBO2MIS SL (19:54)
[2021-09-01] MEDS ORDERED: SUBO12MI SL (19:54)
[2021-09-01] MEDS ORDERED: LEXA1TAB PO (20:03)
[2021-09-01] MEDS ORDERED: HOME MED LIST COMPLETE! XX SCH (20:40)
[2021-09-02 09:10] VITALS: BP 142/74
== END 2021-09-02 09:12 ==
LOC: M ED 15:30
DX: R45.851 Suicidal ideations (principal); F32.A Depression, unspecified; Z98.84 Bariatric surgery status; Z91.51 Personal history of suicidal behavior; Z88.8 Allergy status to other drugs, medicaments and biological substances; Z79.899 Other long term (current) drug therapy